=== PATIENT | female | born 1945 | race Caucasian/White ===

== ENCOUNTER 2017-10-16 11:08 | Emergency (ER) | payer OTHER ==
[~2017-10-16] VITALS: Ht 149.9 cm; Wt 70.3 kg
[~2017-10-16 11:08] MED LIST: ASPIRIN81 M4 PO; ATORVASTATIN CA40 M1 PO; ATORVASTATIN CA40 MG PO; CILOXAN 0.50 GTT/1 B OPH; CIPRO 500MG TA500 MG PO; COLACE100 M1 PO; DILAUDID2 MG PO; ECOTRIN81 MG PO; HYCET 325 MG/1473 ML PO; LEVOTHYROXINE0.05 MG PO; LEVOTHYROXINE50 MCG PO; LINZESS290 MC1 PO; LISINOPRIL10 M1 PO; LISINOPRIL10 MG PO; LOVENOX 4040 MG/0.4 SC; MEDROL4 MG PO; MOBIC 15MG15 MG PO; NEURONTIN300 M1 PO; OXYCODONE-ACET1 EAC1 PO; PANTOPRAZOLE SO40 M1 PO; PERCOCET 5-3251 EACH PO; PROTONIX 40MG T40 MG PO; VALIUM5 M1 PO; VESICARE5 M1 PO
--- NOTE | 2017-10-16 11:41 | ED CARDIAC/CP/PALPITATIONS ---
History of Present Illness General Chief Complaint: Chest Pain Stated Complaint: CHEST PAIN Source: patient Exam Limitations: no limitations Vital Signs & Intake/Output Vital Signs & Intake/Output Vital Signs Date Time Temp Pulse Resp B/P B/P Pulse O2 O2 Flow FiO2 Mean Ox Delivery Rate 10/16 1608 97.8 66 16 112/55 96 Room Air 10/16 1328 78 16 108/52 98 Room Air 10/16 1136 97 Room Air 10/16 1118 97.0 63 18 136/74 99 Room Air Allergies Coded Allergies: adhesive (UNKNOWN 05/07/17) Reconcile Medications Aspirin (Aspirin*) 81 MG TAB.CHEW 1 TAB PO DAILY HTN (Reported) Atorvastatin Calcium 40 MG TABLET 1 TAB PO DAILY CHOLESTEROL (Reported) Calcium Carbonate/Vitamin D3 (Caltrate 600 + D Tablet) 600 MG-800 TABLET 1 TAB PO DAILY VIT (Reported) Cyanocobalamin (Vitamin B-12) 1,000 MCG TABLET 1 TAB PO DAILY VIT (Reported) Gabapentin (Neurontin) 300 MG CAPSULE 2 CAP PO BID NUEROPATHY (Reported) Levothyroxine Sodium 50 MCG TABLET 1 TAB PO DAILY hypothyroidism (Reported) Linaclotide (Linzess) 290 MCG CAPSULE 1 CAP PO DAILY GI (Reported) Lisinopril 10 MG TABLET 1 TAB PO DAILY HEART (Reported) Magnesium Oxide (Magnesium) 400 MG CAPSULE 1 CAP PO DAILY VIT (Reported) Multiple Vitamin (Multivitamins) 1 EACH TABLET 1 TAB PO DAILY VIT (Reported) Oxycodone HCl/Acetaminophen (Oxycodone-Acetaminophen 10-325) 10 MG-325 MG TABLET 1 TAB PO Q4P PRN PAIN (Reported) Oxycodone HCl/Acetaminophen (Percocet 5-325 MG Tablet) 5 MG-325 MG TABLET 1 TAB PO BID PRN PAIN SCALE 7-10 (SEVERE) . Pantoprazole Sodium 40 MG TABLET.DR 1 TAB PO DAILY ACID REFLUX (Reported) Solifenacin Succinate (Vesicare) 5 MG TABLET 1 TAB PO DAILY BLADDER (Reported ) Triage Note: 72 YEAR OLD FEMALE TO ER WITH HER SON, PT STATES THAT ABOUT 2 HOURS AGO WHILE QUILTING SHE HAD A SUDDEN ONSET OF L SIDE CP THAT LASTED ABOUT 2 MINUTES AND SINCE THEN THE PAIN HAS BEEN INTERMITTANT AND SHARP, DENIES PAIN AT THIS TIME, DENIES SOB. STATES THAT AT TIMES THE PAIN SHOOTS INTO HER BACK Triage Nurses Notes Reviewed? yes Onset: Gradual Duration: hour(s): Timing: multiple episodes today Quality/Severity: sharp Location: left chest Radiation: back Activities at Onset: quilting HPI: 72yo female with hx of HTN presents to ED complaining of chest pain beginning approximately two hours prior to arrival. Patient states that she was quilting at home when she had abrupt onset left-sided chest pain described as 5/10, sharp , radiating to back. Pain lasted a few minutes and then resolved however has been intermittently occurring since. Patient reports intermittent chest pains while waiting here in the emergency department. Patient states she has had similar chest pain in the past many years ago, she saw manager lvn Dr. Duke for stress testing in the past however has not followed up for several years. Patient denies dyspnea, presyncope, diaphoresis, abdominal pain, nausea, vomiting, headache, recent cough, dizziness, fevers. (Angela Yepez) Past History Travel History Traveled to [place] past 21 day No Medical History Any Pertinent Medical History? see below for history Neurological: NONE EENT: NONE Cardiovascular: hypertension, hyperlipidemia Respiratory: NONE Gastrointestinal: NONE Hepatic: NONE Renal: NONE Musculoskeletal: chronic back pain, osteoarthritis Psychiatric: NONE Endocrine: hypothyroidism Blood Disorders: NONE Cancer(s): NONE MANAGER CATH LAB/Reproductive: fibroid History of MRSA: No History of VRE: No History of CDIFF: No Influenza Vaccine: 04/12/16 Surgical History Surgical History: [id number] GASTRIC BYPASS Psychosocial History Who do you live with Son What is your primary language Portuguese Tobacco Use: Never used ETOH Use: denies use Illicit Drug Use: denies illicit drug use Family History Hx Contributory? No (Angela Yepez) Review of Systems Review of Systems Constitutional: Reports: no symptoms. EENTM: Reports: no symptoms. Respiratory: Reports: no symptoms. Cardiovascular: Reports: see HPI. GI: Reports: no symptoms. Genitourinary: Reports: no symptoms. Musculoskeletal: Reports: no symptoms. Skin: Reports: no symptoms. Neurological/Psychological: Reports: no symptoms. Hematologic/Endocrine: Reports: no symptoms. Immunologic/Allergic: Reports: no symptoms. All Other Systems: Reviewed and Negative (Angela Yepez) Physical Exam Physical Exam General Appearance: well developed/nourished, no apparent distress, alert, awake Head: atraumatic, normal appearance Eyes: Bilateral: normal appearance. Ears, Nose, Throat: hearing grossly normal Neck: normal inspection, supple, full range of motion Respiratory: normal breath sounds, no respiratory distress, lungs clear Cardiovascular: regular rate/rhythm, normal peripheral pulses Peripheral Pulses: 2+ radial (R), 2+ radial (L) Gastrointestinal: normal bowel sounds, soft, non-tender, no organomegaly Back: normal inspection, normal range of motion Extremities: normal inspection, normal range of motion Neurologic/Psych: awake, alert, oriented x 3 Skin: intact, normal color, warm/dry Core Measures ACS in differential dx? Yes CVA/TIA Diagnosis No Sepsis Present: No Sepsis Focused Exam Completed? No (Carmen SANTAMARIA,Angela Brooke) Progress Differential Diagnosis: AMI, aortic dissection, atrial fibrillation, costochondritis, musculoskeletal pain, myocarditis, pericarditis, pneumonia, pneumothorax, pulmonary embolism, PVCs/PACs, unstable angina Plan of Care: Orders Procedure Date/time Status TROPONIN LEVEL 10/16 1455 Complete EKG 10/16 1455 Active Telemetry/Engagement Liaison 10/16 1159 Active TROPONIN LEVEL 10/16 1124 Complete COMPREHENSIVE METABOLIC PANEL 10/16 1124 Complete CBC WITHOUT DIFFERENTIAL 10/16 1124 Complete EKG 10/16 1109 Active Laboratory Tests 10/16/17 1510: Troponin I < 0.01 10/16/17 1155: Anion Gap 7, Estimated GFR > 60, BUN/Creatinine Ratio 30.0 H, Glucose 83, Calcium 9.3, Total Bilirubin 0.5, AST 45 H, ALT 60 H, Alkaline Phosphatase 61, Troponin I < 0.01, Total Protein 6.1 L, Albumin 3.8, Globulin 2.3, Albumin/ Globulin Ratio 1.7, CBC w Diff NO MAN DIFF REQ, RBC 3.89 L, MCV 84.0, MCH 28.8, MCHC 34.3, RDW 13.6, MPV 7.9, Gran % 50.7, Lymphocytes % 35.5, Monocytes % 7.0, Eosinophils % 6.4 H, Basophils % 0.4, Absolute Granulocytes 3.3, Absolute Lymphocytes 2.3, Absolute Monocytes 0.5, Absolute Eosinophils 0.4, Absolute Basophils 0 EKG with nonspecific t wave changes compared to prior study, no acute ST segment elevation or depression. Some PVCs detected on bus driver/monitor. CT scan is within normal limits, chest x-ray without acute abnormality. Repeat troponin is negative, repeat EKG with nonspecific T-wave changes. Patient is chest pain-free. Currently no symptoms although patient feels tired following dose of Ativan prior to her CT scan for anxiety. Patient ambulated here in the emergency department with no chest pain, steady gait. Patient feels ready to go home at this time. Her vital signs have been stable. Patient will follow-up with cardiology this week. She was given strict return precautions. The patient's son is a reliable source, he takes care of her at home and will continue to monitor her symptoms. The patient and her family agree with the plan of care. The patient was discussed with Dr. Richard who agrees with this plan. Diagnostic Imaging: Viewed by Me: Radiology Read, CT Scan. Discussed w/RAD: Radiology Read, CT Scan. Radiology Impression: PATIENT: TIMOTHY RUSSELL PRESENT AGE: 72 PATIENT ACCOUNT NO: [id number] : 44 LOCATION: [facility] ORDERING PHYSICIAN: Angela SANTAMARIA SERVICE DATE: 10/16/17 EXAM TYPE: CAT - CTA CHEST-AORTIC DISSECTION EXAMINATION: CT ANGIOGRAPHY OF THE CHEST CLINICAL INDICATION: Left-sided chest pain radiating to back. TECHNIQUE: Volume acquisition CT angiography was performed of the entire chest. Scans were performed both with and without IV contrast. For the IV enhanced portion of the exam, 125 mL Optiray 350 was utilized. Images were evaluated on an independent dedicated 3-D workstation and 3-D images were reconstructed with concurrent radiologist supervision and subsequently interpreted. FINDINGS: VASCULAR FINDINGS: The thoracic aorta appears unremarkable. A three-vessel arch is present. The great vessels are all widely patent. There is no evidence of aortic aneurysm or dissection. The visualized pulmonary arteries and pulmonary veins appear normal. Only a tiny portion of the abdominal aorta is seen which appears unremarkable. The celiac and SMA are patent. NONVASCULAR FINDINGS: The lungs are unremarkable. No masses or infiltrates are seen. No pleural effusions are present. The mediastinum and nova appear normal. A small hiatal hernia is present. The chest wall is unremarkable. The visualized structures of the upper abdomen are unremarkable. Degenerative changes are present in the spine. IMPRESSION: No evidence of aortic dissection. DICTATED BY: Juventino Barnes MD DATE/TIME DICTATED:10/16/171321 JOY OPERATOR:ANDREA DATE/TIME TRANSCRIBED:10/16/171321 CONFIDENTIAL, DO NOT COPY WITHOUT APPROPRIATE AUTHORIZATION. <Electronically signed in Other Vendor System> SIGNED BY: Juventino Barnes MD 10/16/17 1554 CXR Impression: PATIENT: TIMOTHY RUSSELL PRESENT AGE: 72 PATIENT ACCOUNT NO: [id number] : 44 LOCATION: [facility] ORDERING PHYSICIAN: Angela SANTAMARIA SERVICE DATE: 10/16/17115 EXAM TYPE: RAD - XRY-CHEST XRAY, TWO VIEWS EXAMINATION: XR CHEST CLINICAL INFORMATION: Chest pain. COMPARISON: Chest x-ray 2 view study dated 08/17/2015. TECHNIQUE: Frontal and lateral views of the chest were obtained. FINDINGS: The lungs are clear bilaterally. There is no evidence of pleural effusion or pneumothorax. The central pulmonary vasculature is within normal limits. The cardiomediastinal silhouette is not enlarged. The bony structures and overlying soft tissues are unremarkable. IMPRESSION: No acute cardiopulmonary findings. DICTATED BY: Alejandrina Limon MD DATE/TIME DICTATED:10/16/171232 JOY OPERATOR: ANDREA DATE/TIME TRANSCRIBED:10/16/171232 CONFIDENTIAL, DO NOT COPY WITHOUT APPROPRIATE AUTHORIZATION. <Electronically signed in Other Vendor System> SIGNED BY: Alejandrina Limon MD 10/16/17 1238 Initial ED EKG: sinus rhythm @60bpm, incomplete LBBB, nonspecific ST changes Prior EKG: changed (05/07/17 t wave changes) Repeat EKG: changed (nonspecific changes) (Angela Yepez) Departure Departure Disposition: HOME OR SELF CARE Condition: Stable Clinical Impression Primary Impression: Chest pain Qualifiers: Chest pain type: unspecified Qualified Code: R07.9 - Chest pain, unspecified Referrals: Mio TAMEZ,Odin Suarez MD,Angel Chen (PCP/Family) Additional Instructions: Follow-up with the manager lvn as discussed, call the office to make an appointment. Monitor for signs of worsening symptoms such as increasing chest pain, shortness of breath, feeling as though he may pass out, abdominal pain. Please return immediately with any of these symptoms. Please note that there might be incidental findings in your evaluation that are unrelated to the current emergency department visit. Please notify your primary care doctor about this emergency department visit in order to obtain and review all of the testing performed so that these incidental findings can be monitored as needed. If you had an x-ray performed, please understand that some fractures may not be seen on the initial set of x-rays. If your symptoms persist you might need a repeat set of x-rays to check for such a fracture. If you had a laceration evaluated, please understand that foreign bodies such as glass or wood may not be visible to the naked eye or on plain x-rays. If the wound becomes red, swollen, increasingly more painful or if there is any drainage from the wound, please have it reevaluated by a physician for the possibility of a retained foreign body. If you're unable to follow up as outlined in the discharge instructions please return to the emergency department. Thank you for choosing the [facility] Emergency Department for your care. It was a pleasure to serve you today. Departure Forms: Customer Survey General Discharge Information (Angela Yepez) PA/CEMENT CONTRACTOR Co-Sign Statement Statement: ED Attending supervision documentation- [X] I saw and evaluated the patient. I have also reviewed all the pertinent lab results and diagnostic results. I agree with the findings and the plan of care as documented in the PA's/CEMENT CONTRACTOR's documentation. [X] I have reviewed the ED Record and agree with the PA's/CEMENT CONTRACTOR's documentation. [] Additions or exceptions (if any) to the PAs/CEMENT CONTRACTOR's note and plan are summarized below: [] (Jose Manuel TAMEZ,Meliza) Critical Care Note Critical Care Note Critical Care Time: non-applicable (Angela Yepez)
[2017-10-16] MEDS ORDERED: MULTIVITAMINS1 EAC9 PO (11:44)
[2017-10-16] MEDS ORDERED: MAGNESIUM400 M1 PO (11:44)
[2017-10-16] MEDS ORDERED: CALTRATE 600 +1 EACH PO (11:44)
[2017-10-16] MEDS ORDERED: VITAMIN B-121000 MC3 PO (11:44)
[2017-10-16] MEDS ORDERED: ASPIRIN81 M4 PO (11:45)
[2017-10-16 12:37] LABS: ABSOLUTE BASOPHIL COUNT 0 /CUMM (0.0-0.2); ABSOLUTE EOSINOPHIL COUNT 0.4 /CUMM (0.0-0.7); ABSOLUTE GRANULOCYTE CT 3.3 /CUMM (1.4-6.5); ABSOLUTE LYMPH COUNT 2.3 /CUMM (1.2-3.4); ABSOLUTE MONOCYTE COUNT 0.5 /CUMM (0.10-0.60); BASOPHIL % 0.4 % (0.0-2.0); EOSINOPHIL % 6.4 % (0-5); GRANULOCYTE % 50.7 % (42.2-75.2); HEMATOCRIT 32.7 % (37-47); MEAN CORPUSCULAR HGB 28.8 PG (27.0-31.0); MEAN CORPUSCULAR HGB CONC 34.3 G/DL (33.0-37.0); MEAN PLATELET VOLUME 7.9 FL (7.4-10.4); PLATELET COUNT 226 /CUMM (130-400); RBC DISTRIBUTION WIDTH 13.6 % (11.5-14.5); RED BLOOD CELL CT 3.89 /CUMM (4.20-5.40); WHITE BLOOD CELL COUNT 6.5 /CUMM (4.8-10.8)
--- NOTE | 2017-10-16 12:38 | RADIOLOGY REPORT ---
EXAMINATION: XR CHEST CLINICAL INFORMATION: Chest pain. COMPARISON: Chest x-ray 2 view study dated 08/17/2015. TECHNIQUE: Frontal and lateral views of the chest were obtained. FINDINGS: The lungs are clear bilaterally. There is no evidence of pleural effusion or pneumothorax. The central pulmonary vasculature is within normal limits. The cardiomediastinal silhouette is not enlarged. The bony structures and overlying soft tissues are unremarkable. IMPRESSION: No acute cardiopulmonary findings.
--- NOTE | 2017-10-16 15:54 | CT SCAN REPORT ---
EXAMINATION: CT ANGIOGRAPHY OF THE CHEST CLINICAL INDICATION: Left-sided chest pain radiating to back. TECHNIQUE: Volume acquisition CT angiography was performed of the entire chest. Scans were performed both with and without IV contrast. For the IV enhanced portion of the exam, 125 mL Optiray 350 was utilized. Images were evaluated on an independent dedicated 3-D workstation and 3-D images were reconstructed with concurrent radiologist supervision and subsequently interpreted. FINDINGS: VASCULAR FINDINGS: The thoracic aorta appears unremarkable. A three-vessel arch is present. The great vessels are all widely patent. There is no evidence of aortic aneurysm or dissection. The visualized pulmonary arteries and pulmonary veins appear normal. Only a tiny portion of the abdominal aorta is seen which appears unremarkable. The celiac and SMA are patent. NONVASCULAR FINDINGS: The lungs are unremarkable. No masses or infiltrates are seen. No pleural effusions are present. The mediastinum and nova appear normal. A small hiatal hernia is present. The chest wall is unremarkable. The visualized structures of the upper abdomen are unremarkable. Degenerative changes are present in the spine. IMPRESSION: No evidence of aortic dissection.
[2017-10-16 16:08] VITALS: BP 112/55
== END 2017-10-16 16:31 ==
LOC: ERH 11:08
PROVIDERS: Physician Assistant
DX: R07.9 Chest pain, unspecified (principal)
CPT/HCPCS: 71046; 93005; 93010; 96374